=== PATIENT | female | born 1955 | race Caucasian/White ===

== ENCOUNTER → 2017-12-19 09:10 | Outpatient (CLI) | payer BC, SELFPAY ==
--- NOTE | 2017-12-19 09:15 | MM_ITS ---
MM Dig screening mamm BI w/CAD CAD Screening ORDERING PHYSICIAN : Declan Wiseman MD PATIENT AGE: 62 years GENDER: Female HISTORY. No hormones. No new complaints. COMPARISON: Previous outside mammogram studies of 11 available these are dated September 2013, 2013, 2010 From [facility] TECHNIQUE: Standard CC and MLO images were obtained. R2 CAD reviewed. FINDINGS: Moderate diffuse fibroglandular elements throughout both breasts. Moderate density breast with no dominant mass nor suspicious calcifications . No significant new findings in either breast. Follow-up in one year RIGHT BREAST no new areas of concern: LEFT BREAST:No new areas of concern Scant focal density density at the lateral left breast is similar to previous studies seen back in 2009 ---IMPRESSION: Stable bilateral mammogram no significant new areas of concern. Follow-up one year recommended Moderate breast density BI-RADS Category: 1 Negative RECOMMENDED FOLLOW-UP: 1YR - 1 YEAR FOLLOW-UP (A letter has been sent to the patient regarding results of the study.)
== END ==
PROVIDERS: Family Provider Family Medicine; PCP Family Medicine; Visit Provider Family Medicine
DX: Z12.31 Encounter for screening mammogram for malignant neoplasm of breast (principal)
CPT/HCPCS: 77067

== ENCOUNTER → 2018-12-16 10:10 | Outpatient (CLI) | payer BC, SELFPAY ==
--- NOTE | 2018-12-16 10:13 | MM_ITS ---
MM Dig screening mamm BI w/CAD CAD Screening COMPARISON: Digital mammograms with CAD 12/19/2017 and 09/15/2014 INDICATION: There is no personal or family history of breast cancer TECHNIQUE: Standard CC and MLO images were obtained. R2 CAD reviewed. FINDINGS: Prominent diffuse somewhat heterogenic fibroglandular densities are seen throughout both breasts and the findings are bilateral and symmetrical. There is a mole marker left breast. There is no suspicious lesion and there are no suspicious microcalcifications. IMPRESSION: Moderate diffuse breast density with no suspicious lesion seen BI-RADS Category: 1 Negative RECOMMENDED FOLLOW-UP: 1YR - 1 YEAR FOLLOW-UP (A letter has been sent to the patient regarding results of the study.)
== END ==
PROVIDERS: PCP Family Medicine; Visit Provider Family Medicine
DX: Z12.31 Encounter for screening mammogram for malignant neoplasm of breast (principal)
CPT/HCPCS: 77067

== ENCOUNTER → 2019-07-21 09:53 | Outpatient (CLI) | payer BC, SELFPAY | PROVIDERS: PCP Family Medicine; Visit Provider Family Medicine | DX: R00.2 Palpitations (principal); Z82.49 Family history of ischemic heart disease and other diseases of the circulatory system | CPT/HCPCS: 93270 ==

== ENCOUNTER → 2019-10-27 11:05 | Outpatient (POV) | payer BC, SELFPAY | PROVIDERS: Visit Provider Dermatology | DX: Z00.00 Encounter for general adult medical examination without abnormal findings (principal) ==

== ENCOUNTER → 2020-01-19 08:45 | Outpatient (CLI) | payer BC, SELFPAY ==
--- NOTE | 2020-01-19 08:49 | MM_ITS ---
PROCEDURE: MM DIG SCREENING MAMM BI W/CAD CLINICAL INDICATION: SCREENING COMPARISON: MM MOBILE MAMMO DIGITAL SCREEN W CAD JASON from 09/15/2014 [facility] MM Dig screening mamm BI w/CAD from 12/19/2017 [facility] MM Dig screening mamm BI w/CAD from 12/16/2018 TECHNIQUE: Standard CC and MLO images and 3D Tomosynthesis was obtained. R2 CAD reviewed. FINDINGS: Breasts are heterogeneously dense. Asymmetrical density in the superior left breast is unchanged. A 3 millimeter well-circumscribed nodule is seen in the lateral left breast. It appears to lie at the level of the nipple line on the MLO view. No discrete mass suspicious clustered microcalcification or other new findings suspicious for malignancy is apparent. IMPRESSION: BI-RAD Category: 3 probably benign finding left breast six-month follow-up exam is recommended. Right breast BI-RADS category 2 benign 1 year follow-up right breast recommended. (A letter has been sent to the patient regarding results of the study.) Dictated by: Idris Mercado 01/19/2020 17:44 Electronically signed by Idris Mercado in [place] 01/19/2020 17:44
== END ==
PROVIDERS: PCP Family Medicine; Visit Provider Family Medicine
DX: Z12.31 Encounter for screening mammogram for malignant neoplasm of breast (principal)
CPT/HCPCS: 77063; 77067

== ENCOUNTER → 2020-07-20 12:51 | Outpatient (CLI) | payer BC, SELFPAY ==
--- NOTE | 2020-07-20 12:55 | MM_ITS ---
PROCEDURE: MM DIG MAMM DX UNILAT LT CAD Digital Breast Tomosynthesis Included CLINICAL INDICATION: ABN MAMM COMPARISON: MG [facility] MM Dig screening mamm BI w/CAD from 12/19/2017 MG [facility] MM Dig screening mamm BI w/CAD from 12/16/2018 MG MM DIG SCREENING MAMM BI W/CAD from 01/19/2020 TECHNIQUE: Standard CC and MLO images and 3D Tomosynthesis was obtained. R2 CAD reviewed. FINDINGS: Slightly asymmetric glandular elements are again seen upper outer quadrant stable and unchanged from the recent study 01/19/2020 and also stable from 12/16/2018. The tiny nodular density lateral breast is stable as well. There is no suspicious lesions seen and no suspicious microcalcifications. IMPRESSION: Stable six-month follow-up mammogram with no suspicious lesions seen BI-RAD Category: 2 Benign Finding(s) FOLLOW-UP: 6M 6Month Follow-up to return to normal yearly screening schedule (A letter has been sent to the patient regarding results of the study.) Dictated by: Dr. Braulio Zepeda MD 07/26/2020 11:30 Dr. Braulio Zepeda MD in [place] 07/26/2020 11:30
== END ==
PROVIDERS: PCP Family Medicine; Visit Provider Family Medicine
DX: R92.8 Other abnormal and inconclusive findings on diagnostic imaging of breast (principal)
CPT/HCPCS: 77061; 77065; G0279

== ENCOUNTER → 2020-07-25 09:15 | Outpatient (CLI) | payer BC, SELFPAY ==
--- NOTE | 2020-07-25 09:20 | US_ITS ---
PROCEDURE: US BREAST LT COMPLETE CLINICAL INDICATION: ABN MAMM COMPARISON: MG MM DIG MAMM DX UNILAT LT CAD from 07/20/2020 FINDINGS: There is a small hypoechoic cystic-appearing lesion at the 1 o'clock position near the nipple with internal septation measuring 0.4 by 0.5 x 0.2 cm. There is an even smaller hypoechoic cystic-appearing lesion at the 2 o'clock position near the nipple measuring 0.4 by 0.4 x 0.2 cm. There is a slightly hypoechoic solid lesion at the 9 o'clock position near the nipple with rather homogeneous internal echogenicity most likely representing a small fibroadenoma. There are normal appearing nodes in the axilla. IMPRESSION: Tiny benign-appearing cystic lesions along with what is likely a small fibroadenoma, no additional follow-up indicated at this time. Dictated by: Dr. Brualio Zepeda MD 07/26/2020 11:34 Dr. Braulio Zepeda MD in [place] 07/26/2020 11:34
== END ==
PROVIDERS: PCP Family Medicine; Visit Provider Family Medicine
DX: R92.8 Other abnormal and inconclusive findings on diagnostic imaging of breast (principal)
CPT/HCPCS: 76641

== ENCOUNTER → 2020-09-08 10:34 | Outpatient (CLI) | payer BC, SELFPAY | PROVIDERS: PCP Family Medicine; Visit Provider Nurse Practitioner Family | DX: Z03.818 Encounter for observation for suspected exposure to other biological agents ruled out (principal) | CPT/HCPCS: U0003 ==

== ENCOUNTER → 2021-12-26 11:10 | Outpatient (CLI) | payer MEDICARE, SELFPAY ==
--- NOTE | 2021-12-26 11:26 | XR_ITS ---
FINAL REPORT CLINICAL HISTORY: LEFT KNEE PAIN X 2 WEEKS after crawling on floor FINDINGS: LEFT KNEE 3 views of the left knee were obtained. There is no acute fracture or dislocation. Visualized joint spaces are preserved. There are osteophytes along the superior and inferior patella. There is no joint effusion. IMPRESSION: No acute bony abnormality. Reviewed, Interpreted and Dictated by Chase Patiño MD Transcribed by Aida Oneal Authenticated by Chase Patiño MD on 12/26/2021 12:45:24 PM [facility]
== END ==
PROVIDERS: PCP Family Medicine; Visit Provider Family Medicine
DX: M25.562 Pain in left knee (principal)
CPT/HCPCS: 73562

== ENCOUNTER 2022-01-10 10:00 | Outpatient (RCR) | payer MEDICARE, SELFPAY ==
--- NOTE | 2022-01-01 09:37 | HMH.PTOPEV ---
PT Outpatient Evaluation Rehab PT Outpatient Evaluation Start: 01/01/22 08:50 Freq: Status: Active Protocol: Document 01/01/22 09:26 KAITLYNN (Rec: 01/01/22 09:37 PHORNE [id number]) Electronically Signed By Teo Lara, PT 01/01/22 09:26 Outpatient Therapy Subjective History Subjective History Pt is 66 yowf who presents with c/o pain in the L knee x ~ 2 wks, worse medially and worse at night. She reports, I was playing in the floor with my granddaughter and my knee started hurting the next day. Pt also reports pain is worse with standing or walking and knee feels stiff with inactivity. She reports PMH of HTN and DM-II. Chief Complaint Pain Symptom Type Ache Symptoms Relieved By Rest/Positioning,Ice Symptoms Aggravated By Standing,Walking Prior Functional Limitations None Current Functional Limitations Sleeping,Standing,Recreation Activity,Walking Symptom Description Constant but Variable Level of pain today (0-10) 7 Pain scale - at its worst (0-10) 9 Hip/Knee Eval Gait Observation General Gait Pattern Observation Antalgic Gait Palpation Tenderness left Knee Palpation Finding Tenderness Knee Palpation Overall Comment medial knee jt line MMT Hip Flexion Strength Grade 4 Good Hip Abduction Strength Grade 4 Good Hip Adduction Strength Grade 4 Good Knee Extension Strength Grade 5 Normal Knee Flexion Strength Grade 5 Normal ROM Knee Extension Active Range of Motion ( 0 degrees) Knee Flexion Active Range of Motion ( 0-115 degrees) Special Tests Sciatic Nerve Tension Test Negative Left,Negative Right Hip Scouring (Quadrant) Test Negative Left,Negative Right Knee Apley Compression Test Negative Left,Negative Right Knee Anterior Drawer Test Negative Left,Negative Right Knee Anterior Yared Test Negative Left,Negative Right Knee Posterior Sag ([place] Drawer) Test Negative Left,Negative Right Knee Valgus Stress Test Negative Left,Negative Right Knee Varus Stress Test Negative Left,Negative Right Knee Meli Test Negative Left,Negative Right Outpatient Therapy Assessment Impairments Problems/Impairmments Palpation Tenderness,Impaired Range of Motion,Impaired Strength,Impaired Endurance, Impaired Gait Pattern,Impaired Walking,Im
== END 2022-01-10 10:05 | disposition home or self-care (01) ==
LOC: PT 10:00
PROVIDERS: PCP Family Medicine; Visit Provider Family Medicine
DX: M22.2X2 Patellofemoral disorders, left knee (principal)
CPT/HCPCS: 97010; 97014; 97035; 97110; 97112; 97140; 97163; 97760; G0283

== ENCOUNTER → 2022-11-16 14:24 | Outpatient (CLI) | payer MEDICARE, SELFPAY ==
--- NOTE | 2022-11-16 14:27 | XR_ITS ---
FINAL REPORT CLINICAL HISTORY: RT FLANK PAIN,RLQ PAIN,UPPER ABD PAIN FINDINGS: SINGLE-VIEW ABDOMEN An AP view of the abdomen and condom view of the pelvis was obtained. No upright view of the abdomen or view of the chest was submitted. There is a nonspecific, nonobstructive bowel gas pattern. No bowel dilation is identified. There is a large amount of stool throughout the colon. Postoperative changes are noted of the right upper quadrant. No abnormal calcification is seen. IMPRESSION: Nonobstructive bowel gas pattern. Large amount of stool. Reviewed, Interpreted and Dictated by Jet Asif III, MD Transcribed by Deyanira Edgar Authenticated and [facility]
== END ==
PROVIDERS: PCP Family Medicine; Visit Provider Nurse Practitioner Family
DX: R10.9 Unspecified abdominal pain (principal); R10.31 Right lower quadrant pain; R10.10 Upper abdominal pain, unspecified
CPT/HCPCS: 74018

== ENCOUNTER → 2023-03-15 12:39 | Outpatient (CLI) | payer MEDICARE, SELFPAY ==
--- NOTE | 2023-03-15 13:10 | MM_ITS ---
PROCEDURE INFORMATION: Exam: MG Bilateral Screening 3D Mammography Exam date and time: 03/15/2023 1:00 PM Age: 68 years old Clinical indication: Screening examination TECHNIQUE: Imaging protocol: Bilateral Screening tomosynthesis and 2D mammography including computer-aided detection (CAD) when performed. COMPARISON: 1. MG MM DIG MAMM DX UNILAT LT CAD 07/20/2020 1:06 PM 2. MG MM DIG SCREENING MAMM BI W/CAD 01/19/2020 9:12 AM FINDINGS: MAMMOGRAPHY: Breast composition: There are scattered areas of fibroglandular density. Mass: None. Architectural distortion: None. Calcifications: No suspicious calcifications. Asymmetric density: None. Skin thickening: None. Axillary adenopathy: None. IMPRESSION: No mammographic evidence of malignancy. Annual screening is recommended unless otherwise clinically indicated. ASSESSMENT: BI-RADS Category 1: Negative
== END ==
PROVIDERS: PCP Family Medicine; Visit Provider Nurse Practitioner Family
DX: Z12.31 Encounter for screening mammogram for malignant neoplasm of breast (principal)
CPT/HCPCS: 77063; 77067

== ENCOUNTER 2024-04-13 09:13 | Outpatient (CLI) | payer MEDICARE, SELFPAY ==
--- NOTE | 2024-04-13 09:40 | MM_ITS ---
PROCEDURE INFORMATION: Exam: MG Bilateral Screening 3D Mammography Exam date and time: 04/13/2024 9:30 AM Age: 69 years old Clinical indication: Screening mammogram TECHNIQUE: Imaging protocol: Bilateral Screening tomosynthesis and 2D mammography including computer-aided detection (CAD) when performed. COMPARISON: 1. MG MM DIG SCREENING MAMM BI W/CAD 03/15/2023 1:00 PM 2. MG MM DIG MAMM DX UNILAT LT CAD 07/20/2020 1:06 PM 3. MG MM DIG SCREENING MAMM BI W/CAD 01/19/2020 9:12 AM 4. MG [facility] MM Dig screening mamm BI w/CAD 12/16/2018 10:33 AM FINDINGS: MAMMOGRAPHY: Breast composition: There are scattered areas of fibroglandular density. Mass: None. Architectural distortion: No new or suspicious architectural distortion. Calcifications: No new or suspicious calcifications are present Asymmetric density: No new or suspicious asymmetric density is present Skin thickening: None. Axillary adenopathy: None. IMPRESSION: No mammographic evidence of malignancy. Recommend annual screening mammography unless otherwise clinically indicated. ASSESSMENT: BI-RADS category 1: Negative.
--- NOTE | 2024-04-13 09:41 | XR_ITS ---
FINAL REPORT TECHNIQUE: Bone mineral density was calculated of the lumbar spine and hip. CLINICAL HISTORY: SCREENING FOR OSTEOPOROSIS COMPARISON: None FINDINGS: Using L1-4, the bone mineral density of the spine is 1.074 g/cm2, corresponding to T-score of 0.2. Using the left hip, the bone mineral density of the femoral neck is 0.739 g/cm2, corresponding to a T-score of -1.0. Using the right hip, the bone mineral density of the femoral neck is 0.745 g/cm?, corresponding to a T-score of -0.9. NOTE: T-score: Standard deviation compared with peak bone mass of young adult mean. *Following the recommendations of the International Society of Bone densitometry, classification of hip BMD is based on the lower of two T-scores; total hip or femoral neck. IMPRESSION: Normal bone mineral density of the lumbar spine and bilateral hips. Reviewed, Interpreted and Dictated by Jet Asif III, MD Transcribed by Deb Gordon Authenticated and [facility]
== END 2024-04-13 23:59 | disposition home or self-care (01) ==
LOC: RAD 09:14
PROVIDERS: PCP Nurse Practitioner; Visit Provider Nurse Practitioner
DX: Z12.31 Encounter for screening mammogram for malignant neoplasm of breast; Z13.820 Encounter for screening for osteoporosis; Z78.0 Asymptomatic menopausal state
CPT/HCPCS: 77063; 77067; 77080

== ENCOUNTER 2024-10-05 10:47 | Day surgery (SDC) | payer MEDICARE, SELFPAY ==
[2024-10-02 11:42] VITALS: BMI 29.0
--- NOTE | 2024-10-05 11:20 | P.PNANES_ITS ---
[facility] Disclaimer: The information contained in this section may have been updated after the patient was seen, as this information can be updated by other users. Medical History (Updated 10/02/24 @ 11:37 by Lilia Farrell RN) Pre-diabetes Hypertension Family History (Updated 10/02/24 @ 11:41 by Lilia Farrell RN) Other Family history of atrial fibrillation Family history of cancer Social History (Updated 10/02/24 @ 11:33 by Lilia Farrell RN) Smoking Status: Never smoker alcohol intake: never substance use type: denies use current occupational status: employed Travel in the last 8 weeks: None [facility] Anesthesia Checklist Patient Identification Patient Identification: Arm Band and Verbal (Name & ) Structural Data Admitted From: Home Planned Operative Procedure/s: Colonoscopy Verified Documents: Surgical Consent and History and Physical NPO Status Verified Time NPO: 09:00 Additional verifications Patient : No Anesthesia Reactions: No Previous Colonoscopy: Yes Cardiovascular Assessment Heart Sounds: S1 & S2 Pulse Rhythm: Irregular Peripheral Edema: No Airway Assessment Mallampati Score:: Class I C-Spine Mobility Assessed: Yes (FROM demonstrated) TMJ Mobility Assessed: Yes Dentition: Good Dentition (Nothing loose per pt.) Neurological Assessment Level of Consciousness: Awake, Alert, Appropriate and Follows Commands Hx Seizures: No Numbness or tingling in extremities: No Anesthesia Plan Anesthesia Risk discussed: Yes Anesthesia Plan: Verified ASA Class: III Anesthesia Type: MAC
[2024-10-05 11:27] VITALS: BP 130/78; PULSE 86; RESP 16; TEMP 36.3; O2SAT 94
[2024-10-05] MEDS: LACTATED RINGERS 1000ML 1,000 ML 100 ML IV (11:33)
[2024-10-05 12:21] VITALS: O2SAT 94
--- NOTE | 2024-10-05 12:23 | P.HP_ITS ---
History of Present Illness *Admission Date: 10/05/24 *Reason for visit:: Positive Cologuard *History of present illness: Mrs. Hanley is a 69-year-old female who is here for screening colonoscopy secondary to positive Cologuard. Her last colonoscopy was 10 years ago. The examination is deemed medically necessary for [default value]. The patient has been seen, interviewed and examined prior to the procedure by both myself and the anesthesia provider. [facility] Disclaimer: The information contained in this section may have been updated after the patient was seen, as this information can be updated by other users. Medical History (Updated 10/05/24 @ 12:24 by Davis Thompson II, MD) Pre-diabetes Hypertension Surgical History (Updated 10/05/24 @ 11:24 by Anya Vergara RN) H/O local excision of skin lesion H/O colonoscopy Family History Other Family history of atrial fibrillation Family history of cancer Social History (Updated 10/05/24 @ 11:21 by Danica Chávez CRNA) Smoking Status: Never smoker alcohol intake: never substance use type: denies use current occupational status: employed Travel in the last 8 weeks: None Review of Systems Review of Systems Review of systems (narrative): Negative *Cardiovascular Comments: Negative *Gastrointestinal Comments: Negative *Genitourinary Comments: Negative *Musculoskeletal Comments: Negative *Neurologic Comments: Negative Meds Home Medications and Allergies Home Medications ?Medication ?Instructions ?Recorded ?Confirmed ?Type escitalopram oxalate 10 mg tablet 20 mg PO DAILY Depression 08/23/18 10/05/24 History (Lexapro) lisinopril 40 mg tablet (Zestril) 40 mg PO DAILY bp 08/23/18 10/05/24 History lovastatin 10 mg tablet 10 mg PO DAILY 10/02/24 10/05/24 History metformin 500 mg tablet 500 mg PO DAILY 10/02/24 10/05/24 History New Prescriptions to Start Prescriptions: Allergies Allergy/AdvReac Type Severity Reaction Status Date / Time No Known Allergies Allergy Unverified 11/19/17 14:55 Exam Data for Last 24 hours Vital signs and Labs for Last 24 Hours: Temp Pulse Resp BP Pulse Ox O2 Del Method 97.4 F L 86 16 130/78 94 L Room Air 10/05/24 11:27 10/05/24 11:27 10/05/24 11:27 10/05/24 11:27 10/05/24 11:27 10/05/24 11:27 I & O for Last 24 hours: Intake & Output 10/02/24 10/03/24 10/04/24 10/05/24 23:59 23:59 22:59 23:59 Weight 185 lb *Routine HEENT Exam Head: Present normocephalic Eye: Present EOMI and PERRL ENT: Present mucous membranes moist *Routine Neck Exam Neck: Present supple *Routine Respiratory Exam Respiratory: Present CTA bilaterally *Routine Cardiovascular Exam Cardiovascular: Present RRR *Routine Abdominal Exam Abdominal: Present soft and normoactive bowel sounds; Absent tenderness *Routine Rectal Exam Rectal:: deferred *Routine Genitalia Exam Genitalia:: deferred *Routine Extremities Exam Extremities: Absent cyanosis, clubbing or edema *Routine Skin Exam Skin: Present warm; Absent rash *Routine Neurological Exam Neurological: Present alert and oriented X3 Assessment and Plan *Assessment and plan (1) Positive colorectal cancer screening using Cologuard test: Status: Acute Category: Medical Code(s): R19.5 - Other fecal abnormalities Plan A/P: 1. Positive Cologuard is the preprocedural diagnosis. The patient will be anesthetized/sedated using MAC sedation. The patient has been seen and examined. Cardiac and lung assessment prior to the examination is stable. Proceed with planned colonoscopy
--- NOTE | 2024-10-05 12:24 | P.PCN_ITS ---
[facility] Procedure Note Date: 10/05/24 Time: 12:52 Procedure Note:: Colonoscopy Procedure Report: Colonoscopy with cold snare polypectomy Endoscopist: Davis Thompson II, MD Referring physician: Wolf James M.D. Date of Procedure: October 05, 2024 Equipment: Olympus 190 variable stiffness pediatric colonoscope Sedation: MAC sedation Indication: Mrs. Hanley is a 69-year-old female who is referred for screening colonoscopy secondary to a positive Cologuard. The patient does state that her maternal uncle had colon cancer in his 70s. Patient states that her last colonoscopy was 10 years ago or more. The patient reports no abdominal pain, weight loss, change in her bowel habits or rectal bleeding. She does have some chronic longstanding constipation. Procedure: Prior to the procedure, a history and physical exam was performed, and patient's medications and allergies were reviewed. The risks, benefits and alternatives of the sedation and procedure were discussed with the patient. All questions were answered and informed consent was obtained. The patient was brought to the procedure room. Patient identification and proposed procedure were verified by the physician and the nurse. The patient was placed in a left lateral decubitus position and the scope was passed under direct vision. Throughout the procedure, the patient's blood pressure, pulse, and oxygen saturations were monitored continuously. The colonoscopy was accomplished without difficulty. The patient tolerated the procedure well. Findings: On digital rectal examination there was normal rectal tone. There were no external hemorrhoids. The colonoscope was introduced through the anal canal to the rectum and advanced to the cecum. The ileocecal valve and appendiceal orifice were identified. The scope was advanced a short distance into the ileum which appeared grossly normal. The scope was then withdrawn into the colon. The cecum and ascending colon and mucosa were grossly normal. There were 5 polyps (transverse x 2 (4 and 11 mm) and rectum x 3 (4, 4 and 5 mm)). These were all removed via cold snare polypectomy. The 11 mm transverse polyp had a mucus cap and this is suggestive of serrated adenoma. There were scattered diverticuli throughout the descending and sigmoid colon (LEFT colon). The rectum itself was normal. Upon retroflexion within the rectum there were grade 1-2 internal hemorrhoids. The preparation was fair throughout with Convoy Preparation Score of 7 out of 9. The cecal time was 16 minutes. Impression: 1. Colonic polyps x 5 (ranging in size from 4 to 11 mm) 2. Left-sided diverticulosis 3. Grade 1-2 internal hemorrhoids Plan: I will follow-up the polyp histology and recommend repeat surveillance colonoscopy again in 3 to 5 years. I will recommend a fiber bowel regimen (combined MiraLAX plus Citrucel) on a long-term daily maintenance basis for bowel habit training.
[2024-10-05 12:55] VITALS: BP 94/53; PULSE 71; RESP 16; O2SAT 94
[2024-10-05 13:05] VITALS: BP 94/59; PULSE 78; RESP 16; O2SAT 96
[2024-10-05 13:15] VITALS: BP 98/58; PULSE 74; RESP 18; O2SAT 97
[2024-10-05 13:25] VITALS: BP 106/61; PULSE 73; RESP 16; O2SAT 98
[2024-10-06 08:13] LABS: POC Glucose,Bedside 123 (70-110)
== END 2024-10-05 13:31 | disposition home or self-care (01) ==
PROVIDERS: PCP Family Medicine; Visit Provider Internal Medicine Gastroenterology
PROC: 0DJD8ZZ Inspection of Lower Intestinal Tract, Via Natural or Artificial Opening Endoscopic (ICD-10-PCS; CPT 45378; principal; 2024-10-05 12:30)
DX: Z12.11 Encounter for screening for malignant neoplasm of colon (principal); D12.3 Benign neoplasm of transverse colon; K62.1 Rectal polyp; Z80.0 Family history of malignant neoplasm of digestive organs; K57.30 Diverticulosis of large intestine without perforation or abscess without bleeding; K64.1 Second degree hemorrhoids; R19.5 Other fecal abnormalities; Z79.899 Other long term (current) drug therapy
CPT/HCPCS: 45385; 82962; 88305; J2704; J7120

== ENCOUNTER 2025-04-05 09:39 | Outpatient (CLI) | payer MEDICARE, SELFPAY ==
--- NOTE | 2025-04-05 09:42 | MM_ITS ---
PROCEDURE INFORMATION: Exam: MG Bilateral Screening 3D Mammography Exam date and time: 04/05/2025 9:58 AM Age: 70 years old Clinical indication: Screening examination TECHNIQUE: Imaging protocol: Bilateral Screening tomosynthesis and 2D mammography including computer-aided detection (CAD) when performed. COMPARISON: 1. MG MM DIG SCREENING MAMM BI W/CAD 04/13/2024 9:30 AM 2. MG MM DIG SCREENING MAMM BI W/CAD 03/15/2023 1:00 PM FINDINGS: MAMMOGRAPHY: Breast composition: There are scattered areas of fibroglandular density. Mass: None. Architectural distortion: None. Calcifications: No suspicious calcifications. Asymmetric density: None. Skin thickening: None. Axillary adenopathy: None. IMPRESSION: No mammographic evidence of malignancy. Annual screening is recommended unless otherwise clinically indicated. ASSESSMENT: BI-RADS Category 1: Negative.
== END 2025-04-05 23:59 | disposition home or self-care (01) ==
LOC: RAD 09:39
PROVIDERS: PCP Nurse Practitioner; Visit Provider Nurse Practitioner
DX: Z12.31 Encounter for screening mammogram for malignant neoplasm of breast (principal)
CPT/HCPCS: 77063; 77067